=== PATIENT | male | born 1955 | race Two or more races ===

== ENCOUNTER 2017-11-03 11:28 | Inpatient (IN) | payer OTHER ==
[~2017-11-03] VITALS: Ht 177.8 cm; Wt 49.9 kg
[2017-11-03 11:30] VITALS: BP 124/82
--- NOTE | 2017-11-03 11:30 | NUR ---
[id number] FROM HOME: SEVERE SOB, HYPOXIA. PATIENT APPEARS IN DISTRESS. NOTED TACHY ON TELE MONITOR. AFEBRILE AT THUS TIME,. MD CHACON AND RT AT BEDSIDE
--- NOTE | 2017-11-03 11:32 | NUR ---
PATIENT WAS PLACED ON CPAP
[2017-11-03] MEDS ORDERED: Magnesium 1GM/D5W 100ML PREMIX 200 ML IV ONE ×2 (11:33→11:44)
[2017-11-03] MEDS ORDERED: methylPREDNISolone SOD SUCC 125 MG/2ML VIAL ONE (11:43)
--- NOTE | 2017-11-03 11:50 | NUR ---
RT AT BS
[2017-11-03 11:58] LABS: BASOPHILS # (AUTO) 0.2 /CMM (0.0-0.2); BASOPHILS % (AUTO) 1.4 % (0.0-2.0); HEMATOCRIT 45 % (39-51); HEMOGLOBIN 15.4 g/dL (13.5-17.5); LYMPHOCYTES % (AUTO) 7.2 % (20.0-44.0); MEAN CORPUSCULAR HEMOGLOBIN 33 PG (26.0-33.0); MEAN CORPUSCULAR HGB CONC 35 g/dl (31.0-36.0); MEAN CORPUSCULAR VOLUME 96 fL (80-96); MONOCYTES # (AUTO) 1.7 /CMM (0.1-1.30); MONOCYTES % (AUTO) 13.2 % (2.0-12.0); NEUTROPHILS # (AUTO) 10.3 /CMM (1.8-8.9); NEUTROPHILS % (AUTO) 78.2 % (43.0-81.0); PLATELET COUNT (AUTO) 544 /CMM (150-450); RDW COEFFICIENT OF VARIATION 12.1 (11.5-15.0); RED BLOOD CELL COUNT(AUTO) 4.69 MIL/uL (4.5-6.0); WHITE BLOOD COUNT (AUTO) 13.2 K/uL (4.3-11.0)
[2017-11-03] MEDS ORDERED: ALBUTEROL FS 2.5 MG/3 ML VIAL.NEB NEB ONE (12:00)
[2017-11-03] MEDS ORDERED: IPRATROPIUM NEB FS 0.5 MG/2.5 ML AMPUL.NEB NEB ONE (12:00)
[2017-11-03] MEDS ORDERED: methylPREDNISolone SOD SUCC 125 MG/2ML VIAL IV ONE (12:00)
--- NOTE | 2017-11-03 12:00 | NUR ---
RT PT CAME FOR SOB PLACED PT ON BIPAP ORDERED PER 15/03 16RR 100% 02
[2017-11-03 12:08] LABS: CARBON DIOXIDE 35 mmol/L (21-32); CHLORIDE 99 mmol/L (98-107); CREATININE 0.6 mg/dL (0.6-1.3); GLUCOSE 166 mg/dL (74-106); POTASSIUM 4.1 mmol/L (3.5-5.1); SODIUM SERUM 140 mmol/L (136-145); UREA NITROGEN, BLOOD 15 mg/dL (7-18)
[2017-11-03 12:11] LABS: INR 1.14 (0.87-1.13); PROTHROMBIN TIME 11.9 SECS (9.5-12.7)
[2017-11-03 12:16] LABS: TROPONIN I < 0.017 ng/mL (0.00-0.056)
[2017-11-03 12:21] LABS: ALANINE AMINOTRANSFERASE 37 U/L (12-78); ALKALINE PHOSPHATASE 83 U/L (46-116); ASPARTATE AMINOTRANSFERASE 25 U/L (15-37); B-TYPE NATRIURETIC PEPTIDE 2052 PG/ML (0-125); BILIRUBIN,DIRECT 0.2 mg/dL (0.0-0.2); BILIRUBIN,TOTAL 0.5 mg/dL (0.2-1.0); TOTAL PROTEIN, SERUM 8.6 g/dL (6.4-8.2)
[2017-11-03] MEDS ORDERED: ALBUTEROL FS 2.5 MG/3 ML VIAL.NEB ONE (12:26)
[2017-11-03 12:39] VITALS: BP 107/84
--- NOTE | 2017-11-03 13:00 | NUR ---
RT PT ON BIPAP TX GIVEN INLINE FELIX VENT SETTING ABG TAKEN INFORMED DR CHACON, TITRATED 02 50%
[2017-11-03 13:13] LABS: ABG BASE EXCESS 3.9 mmol/L; ABG OXYGEN SATURATION 99.2 % (92.0-98.5); ABG PCO2 62.6 mmHg (35.0-45.0); ABG PH 7.325 (7.350-7.450); AaDO2 43.7 mmHg; COHb 0.9 % (0.5-1.5); MetHb 0.6 % (0.0-1.5); O2Hb 97.7 % (94.0-97.0); SITE, ABG Left Brachial; VENT MODE, BG bipap100% 02 15/5
[2017-11-03] MEDS ORDERED: IV NS 0.9% 250 ML IV ONE (13:44)
[2017-11-03] MEDS ORDERED: CT SWABBABLE VALVE TRANS SET 1 EA INFUS.SET MC ONE (13:44)
[2017-11-03] MEDS ORDERED: IOHEXOL-350 100 ML VIAL IV ONE (13:44)
[2017-11-03] MEDS ORDERED: CEFTRIAXONE 1GM BAG (ER ONLY) 50 ML IV ONE (14:30)
[2017-11-03] MEDS ORDERED: AZITHROMYCIN 500 MG in IV D5W 250 ML IV ONE (14:30)
[2017-11-03 14:46] LABS: APPEARANCE,URINE Clear (CLEAR); BILIRUBIN,URINE Negative (NEGATIVE); BLOOD, URINE Moderate Ery/uL (NEGATIVE); COLOR,URINE Yellow (YELLOW); KETONES,URINE Negative (NEGATIVE); LEUKOCYTE ESTERASE ,URINE Negative (NEGATIVE); NITRITE, URINE Negative (NEGATIVE); PH,URINE 5.5 (5.0-8.0); PROTEIN,URINE >=300 mg/dl (NEGATIVE); UGLUCOSE Negative (NEGATIVE)
[2017-11-03 15:02] LABS: BACTERIA,URINE None seen /HPF (None Seen); RBC,URINE 0-3 /HPF (0-2); SQUAMOUS EPITHELIAL CELL,UR Few /HPF (None Seen)
[2017-11-03] MEDS ORDERED: ONDANSETRON HCL/PF 4 MG/2 ML VIAL IVP PRN (15:30)
[2017-11-03] MEDS ORDERED: ACETAMINOPHEN 650 MG/SUPP.RECT RC PRN (15:30)
[2017-11-03] MEDS ORDERED: IV NS 0.9% 1,000 ML BAG IV ONE (15:30)
[2017-11-03] MEDS ORDERED: VANCOMYCIN 1 GM in IV D5W 250 ML IV ONE ×4 (16:00)
[2017-11-03 16:45] LABS: ALBUMIN 2.5 g/dL (3.4-5.0); BILIRUBIN,DIRECT 0.2 mg/dL (0.0-0.2); BILIRUBIN,TOTAL 0.5 mg/dL (0.2-1.0); CREATININE 0.6 mg/dL (0.6-1.3); TOTAL PROTEIN, SERUM 7.3 g/dL (6.4-8.2)
--- NOTE | 2017-11-03 17:04 | NUR ---
CALLED [facility], DR. LOOMIS WAS PAGED
--- NOTE | 2017-11-03 17:05 | NUR ---
RECEIVED CALL FROM FIELD SALES EXECUTIVE. PATIENT WILL NOT BE ABLE TO GET TRANSFERED OUT TO [facility]. OKAY TO ADMIT PATIENT TO HOSPITALIST. TRACKING NUMBER RECEIVED FROM FIELD SALES EXECUTIVE: [id number]
[2017-11-03 17:28] LABS: ABG BASE EXCESS 6.3 mmol/L; ABG OXYGEN SATURATION 90.4 % (92.0-98.5); ABG PCO2 51.5 mmHg (35.0-45.0); ABG PH 7.414 (7.350-7.450); ABG PO2 60.3 mmHg (75.0-100.0); AaDO2 165.7 mmHg; COHb 0.6 % (0.5-1.5); MetHb 0.4 % (0.0-1.5); O2Hb 89.5 % (94.0-97.0); SITE, ABG Left Brachial
[2017-11-03] MEDS ORDERED: PIPERACILLIN /TAZOBACTAM 4.5 G in IV D5W 100 ML IV SCH (18:00)
--- NOTE | 2017-11-03 18:37 | NUR ---
REPORT GIVEN TO NAE JONES FOR RANDI
--- NOTE | 2017-11-03 18:50 | NUR ---
PATIENT TRANSPORTED TO TELE. S
[2017-11-03] MEDS ORDERED: FEE PK DOSING 1 MIN EA MC ONE (18:52)
[2017-11-03] MEDS ORDERED: MORPHINE SULFATE INJ 4 MG/ML DISP.SYRIN IV PRN (19:00)
--- NOTE | 2017-11-03 19:35 | NUR ---
LACQUER COATER ADMIN NOTES PT ARRIVED ON FLOOR AT 1850. PT IS A/O X3, ABLE TO MAKE NEEDS KNOWN. MAY BE A POOR HISTORIAN, NOTICED DISCREPANCIES BETWEEN PTS INTERVIEW AND MDS NOTES OF INTERVIEW WITH FAMILY. DENIES PAIN AT THIS TIME. POOR HYGIENE NOTED, PT STATES HE HAS NOT SHOWERED IN A COUPLE DAYS. SKIN IS INTACT, ONLY DRYNESS NOTED. PT STATES THAT HE HAS HAD POOR APPETITE LATELY AND HASN'T BEEN WANTING TO DRINK OR EAT MUCH. WHEN I ASKED IF HE HAD LOST WEIGHT HE STATED MAYBE JUST A COUPLE POUNDS, IN MDS REPORT FAMILY STATED HE HAD LOST A LOT OF WEIGHT. ON TELE MONITOR SHOWING ST 110. BED IS IN LOW AND LOCKED POSITION, CALL LIGHT WITHIN REACH. WILL CONTINUE TO MONITOR PT.
[2017-11-03 20:00] VITALS: BP 117/70
[2017-11-03] MEDS: PANTOPRAZOLE 40 MG VIAL IV SCH (22:09)
[2017-11-03] MEDS: ZOSYN IVPB 3.375 G in IV D5W 50ml IV SCH (22:09)
[2017-11-04] VITALS: BP 114/68
[2017-11-04] MEDS: ZOSYN IVPB 3.375 G in IV D5W 50ml IV SCH ×4 (01:52→20:23)
[2017-11-04] MEDS ORDERED: VANCOMYCIN 1 GM VIAL ONE ×2 (03:02→03:11)
[2017-11-04] MEDS: VANCOMYCIN 0.75 GM in IV D5W 250 ML IV SCH ×2 (03:28→18:06)
[2017-11-04 04:00] VITALS: BP 106/61
--- NOTE | 2017-11-04 06:38 | NUR ---
PIPE FITTER CLOSING NOTES PT IS IN BED AWAKE AND ALERT. NO SIGNS OF SOB OR DISTRESS. BREATHING EVENLY AND UNLABORED ON 2L NC. TELE MONITOR SHOWING SR 98. DENIES PAIN AT THIS TIME. ALL NEEDS WERE ANTICIPATED AND MET. BED IS IN LOW AND LOCKED POSITION, CALL LIGHT WITHIN REACH. WILL ENDORSE TO DAYSHIFT.
[2017-11-04 06:46] LABS: EOSINOPHILS % (AUTO) 0.1 % (0.0-6.0); HEMATOCRIT 37 % (39-51); HEMOGLOBIN 12.6 g/dL (13.5-17.5); LYMPHOCYTES # (AUTO) 0.7 /CMM (0.8-4.8); LYMPHOCYTES % (AUTO) 4.5 % (20.0-44.0); MEAN CORPUSCULAR HEMOGLOBIN 33 PG (26.0-33.0); MEAN CORPUSCULAR HGB CONC 34 g/dl (31.0-36.0); MEAN CORPUSCULAR VOLUME 96 fL (80-96); MONOCYTES # (AUTO) 1.8 /CMM (0.1-1.30); MONOCYTES % (AUTO) 10.8 % (2.0-12.0); NEUTROPHILS # (AUTO) 13.8 /CMM (1.8-8.9); NEUTROPHILS % (AUTO) 84.6 % (43.0-81.0); PLATELET COUNT (AUTO) 500 /CMM (150-450); RDW COEFFICIENT OF VARIATION 11.9 (11.5-15.0); RED BLOOD CELL COUNT(AUTO) 3.87 MIL/uL (4.5-6.0); WHITE BLOOD COUNT (AUTO) 16.3 K/uL (4.3-11.0)
--- NOTE | 2017-11-04 07:10 | NUR ---
RN NOTES: PATIENT RESTIN IN BED. NONLABORED BREATHING NOTED ON ROOM AIR. NO SIGNS OF DISTRESS NOTED. PATIENT AOX3. IV LINE PATENT AND INTACT ON LEFT HAND. BED IN LOWEST LOCKED POSITION.CALL LIGHT WITHIN REACH
--- NOTE | 2017-11-04 07:10 | NUR ---
RN NOTES: PATIENT RESTIN IN BED. NONLABORED BREATHING NOTED ON ROOM AIR. NO SIGNS OF DISTRESS NOTED. PATIENT AOX3. IV LINE PATENT AND INTACT ON LEFT HAND. PATIENT ON TELE WITH SINUS RHYTHM. BED IN LOWEST LOCKED POSITION.CALL LIGHT WITHIN REACH
[2017-11-04 07:21] LABS: ALBUMIN 2.3 g/dL (3.4-5.0); BILIRUBIN,TOTAL 0.3 mg/dL (0.2-1.0); CREATININE 0.7 mg/dL (0.6-1.3); POTASSIUM 3.9 mmol/L (3.5-5.1)
[2017-11-04 08:00] VITALS: BP 98/61
[2017-11-04] MEDS: IV NS 0.9% 1,000 ML IV PRN ×2 (09:06→20:21)
[2017-11-04] MEDS: PANTOPRAZOLE 40 MG VIAL IV SCH (09:11)
[2017-11-04 12:00] VITALS: BP 98/59
[2017-11-04] MEDS: methylPREDNISolone SOD SUCC 125 MG/2ML VIAL IV SCH ×2 (15:34→20:22)
[2017-11-04 15:59] VITALS: BP 115/68
[2017-11-04] MEDS: IPRATROPIUM NEB FS 0.5 MG/2.5 ML AMPUL.NEB NEB SCH ×2 (16:38→20:09)
[2017-11-04] MEDS: ALBUTEROL HALF STRENGTH 1.25 MG/3 ML VIAL.NEB NEB SCH ×2 (16:38→20:09)
--- NOTE | 2017-11-04 19:10 | NUR ---
RN NOTES: PATIENT RESTIN IN BED. NONLABORED BREATHING NOTED ON2 L NASAL CANNULA. NO SIGNS OF DISTRESS NOTED. PATIENT AOX3. IV LINE PATENT AND INTACT ON LEFT HAND. BED IN LOWEST LOCKED POSITION.CALL LIGHT WITHIN REACH. PATIENT AFEBRILE DURING SHIFT, EDUCATED ON USAGE ON INCENTIVE SPIROMETER, VERBALIZED UNDERSTANDING. PATIENT NOTED WITH NONPRODUCTIVE COUGHING. ANTIBIOTICS ADMINISTERED LATE DUE TO LATE ARRIVAL FROM PHARMACY, SPOKE TO JAVIER. BED IN LOWEST LOCKED POSITION. CALL LIGHT WITHIN REACH. ENDORSED TO NEXT SHIFT
--- NOTE | 2017-11-04 19:35 | NUR ---
MS RN INITIAL NOTES PT IS IN BED AWAKE AND ALERT, ABLE TO MAKE NEEDS KNOWN. BREATHING EVENLY AND UNLABORED ON 2L NC. NO SIGNS OF SOB OR DISTRESS. INCENTIVE SPIROMETER AT BEDSIDE, REEDUCATED PT ON THE IMPORTANCE OF IT, PT VERBALIZED UNDERSTANDING. IV ACCESS IS LEAKING/ NO LONGER PATENT. NEW LINE TO BE INSERTED. PLACED SPECIMEN CUP NEAR PT BED FOR SPUTUM COLLECTION. BED IS IN LOW AND LOCKED POSITION, CALL LIGHT WITHIN REACH. WILL CONTINUE TO MONITOR PT
[2017-11-04 20:00] VITALS: BP 120/66
[2017-11-04] MEDS ORDERED: AZITHROMYCIN 500 MG VIAL ONE (22:54)
[2017-11-04] MEDS: AZITHROMYCIN 500 MG in IV D5W 250 ML IV SCH (23:05)
[2017-11-05] MEDS: IPRATROPIUM NEB FS 0.5 MG/2.5 ML AMPUL.NEB NEB SCH ×6 (00:01→20:23)
[2017-11-05] MEDS: ALBUTEROL HALF STRENGTH 1.25 MG/3 ML VIAL.NEB NEB SCH ×6 (00:01→20:23)
[2017-11-05] MEDS: ZOSYN IVPB 3.375 G in IV D5W 50ml IV SCH ×4 (01:07→20:28)
[2017-11-05] MEDS: VANCOMYCIN 0.75 GM in IV D5W 250 ML IV SCH (04:00)
[2017-11-05] MEDS: methylPREDNISolone SOD SUCC 125 MG/2ML VIAL IV SCH ×3 (04:00→20:56)
[2017-11-05] MEDS: IV NS 0.9% 1,000 ML IV PRN (04:06)
--- NOTE | 2017-11-05 06:11 | NUR ---
MS RN CLOSING NOTES PT IS IN BED SLEEPING, EASILY AROUSED. NO SIGNS OF SOB OR DISTRESS. BREATHING EVENLY AND UNLABORED ON 2L NC.DENIES PAIN AT THIS TIME. UNABLE TO COLLECT SPUTUM. ALL NEEDS WERE ANTICIPATED AND MET. BED IS IN LOW AND LOCKED POSITION, CALL LIGHT WITHIN REACH. WILL ENDORSE TO DAYSHIFT.
--- NOTE | 2017-11-05 07:15 | NUR ---
RN OPENING NOTES RECEIVED PATIENT RESTING IN BED, A/OX3. NO ACUTE DISTRESS, NO SOB NOTED. DENIES PAIN OR DISCOMFORT. ON 2LPM O2 VIA NC, SPO2 96%. IV SITE INTACT AND PATIENT, IVF RUNNING AT 125ML/HR. KEPT PATIENT SAFE AND COMFORTABLE. BED IN LOW, LOCKED POSITION, SEMIFOWLERS, SIDERAILS UPX2, CALL LIGHT IN REACH. WILL CONTINUE TO MONITOR ACCORDINGLY.
[2017-11-05 08:00] VITALS: BP 128/56
[2017-11-05] MEDS: PANTOPRAZOLE 40 MG VIAL IV SCH (08:58)
[2017-11-05 09:08] LABS: CALCIUM, SERUM 8.6 mg/dL (8.5-10.1); CREATININE 0.6 mg/dL (0.6-1.3); POTASSIUM 3.6 mmol/L (3.5-5.1)
[2017-11-05 11:34] LABS: BASOPHILS # (AUTO) 0.2 /CMM (0.0-0.2); BASOPHILS % (AUTO) 1.7 % (0.0-2.0); HEMATOCRIT 32 % (39-51); HEMOGLOBIN 11.3 g/dL (13.5-17.5); LYMPHOCYTES # (AUTO) 0.9 /CMM (0.8-4.8); LYMPHOCYTES % (AUTO) 7.4 % (20.0-44.0); MEAN CORPUSCULAR HEMOGLOBIN 33 PG (26.0-33.0); MEAN CORPUSCULAR HGB CONC 35 g/dl (31.0-36.0); MEAN CORPUSCULAR VOLUME 95 fL (80-96); MONOCYTES # (AUTO) 0.8 /CMM (0.1-1.30); NEUTROPHILS # (AUTO) 10.2 /CMM (1.8-8.9); NEUTROPHILS % (AUTO) 83.9 % (43.0-81.0); PLATELET COUNT (AUTO) 404 /CMM (150-450); RDW COEFFICIENT OF VARIATION 11.7 (11.5-15.0); RED BLOOD CELL COUNT(AUTO) 3.38 MIL/uL (4.5-6.0); WHITE BLOOD COUNT (AUTO) 12.1 K/uL (4.3-11.0)
[2017-11-05 12:12] LABS: CALCIUM, SERUM 8.5 mg/dL (8.5-10.1); CREATININE 0.5 mg/dL (0.6-1.3); POTASSIUM 3.4 mmol/L (3.5-5.1)
[2017-11-05 16:00] VITALS: BP 110/61
[2017-11-05] MEDS ORDERED: POTASSIUM CHLORIDE 20 MEQ POWDER PACKET NG SCH ×2 (16:00→18:30)
[2017-11-05] MEDS: BOOST PLUS FOOD-VANILLA 237 ML BOX PO SCH (17:00)
[2017-11-05] MEDS: VANCOMYCIN 1 GM in IV D5W 250 ML IV SCH (17:40)
--- NOTE | 2017-11-05 19:35 | NUR ---
RN CLOSING NOTES NO SIGNIFICANT CHANGE IN PATIENT'S CONDITION. NO ACUTE DISTRESS, NO SOB NOTED. DENIES PAIN OR DISCOMFORT. ALL NEEDS ATTENDED AND PROVIDED. BED IN LOW, LOCKED POSITION, SIDERAILS UPX2, CALL LIGHT IN REACH. ENDORSED TO NIGHT RN FOR RANDI.
[2017-11-05 20:00] VITALS: BP 130/58
--- NOTE | 2017-11-05 20:00 | NUR ---
RN NOTES PATIENT IN BED, ALERT AND ORIENTED X3, CALM, NO SOB, NO DISTRESS, TOLERATING 2LPM, ABLE TO VERBALIZE NEEDS, DENIES ANY PAIN AT THIS TIME, LEFT FA PERIPHERAL LINE IS PATENT AND INFUSING WELL. NEEDS ATTENDED, CALL LIGHT WITHIN REACH.
[2017-11-05] MEDS: AZITHROMYCIN 500 MG in IV D5W 250 ML IV SCH (22:40)
[2017-11-06] MEDS: IPRATROPIUM NEB FS 0.5 MG/2.5 ML AMPUL.NEB NEB SCH ×7 (00:07→23:39)
[2017-11-06] MEDS: ALBUTEROL HALF STRENGTH 1.25 MG/3 ML VIAL.NEB NEB SCH ×7 (00:07→23:39)
[2017-11-06] MEDS: IV NS 0.9% 1,000 ML IV PRN ×2 (01:00→20:41)
[2017-11-06] MEDS: ZOSYN IVPB 3.375 G in IV D5W 50ml IV SCH ×4 (01:35→20:36)
[2017-11-06] MEDS: VANCOMYCIN 1 GM in IV D5W 250 ML IV SCH ×2 (05:13→19:00)
[2017-11-06] MEDS: methylPREDNISolone SOD SUCC 125 MG/2ML VIAL IV SCH ×3 (05:13→20:36)
[2017-11-06 08:00] VITALS: BP 131/56
--- NOTE | 2017-11-06 08:10 | NUR ---
MS RN RECEIVED ON BED, AWAKE,ALERT,ORIENTED X3,NOT IN ANY FORM OF DISTRESS, RESPIRATIONS EVEN AND UNLABORED,NO SOB NOTED, WILL MONITOR PATIENT.
[2017-11-06 08:15] LABS: CALCIUM, SERUM 8.6 mg/dL (8.5-10.1); CREATININE 0.5 mg/dL (0.6-1.3); POTASSIUM 3.4 mmol/L (3.5-5.1)
--- NOTE | 2017-11-06 09:00 | NUR ---
MS SOIN BREAKFAST SERVED,DUE MEDS GIVEN,TOLERATED WELL.
[2017-11-06] MEDS: PANTOPRAZOLE 40 MG VIAL IV SCH (09:45)
[2017-11-06] MEDS: BOOST PLUS FOOD-VANILLA 237 ML BOX PO SCH ×2 (09:45→17:00)
--- NOTE | 2017-11-06 10:30 | NUR ---
MS RN WAS SEEN BY DR. LOOMIS ,NO ORDER AT THIS TIE.
[2017-11-06] MEDS ORDERED: POTASSIUM CHLORIDE 20 MEQ TAB.PRT.SR PO ONE ×2 (11:00→18:00)
[2017-11-06 16:00] VITALS: BP 127/58
--- NOTE | 2017-11-06 18:00 | NUR ---
MS RN ON BED, NO DISTRESS NOTED, ALL NEEDS ATTENDED.
--- NOTE | 2017-11-06 18:17 | NUR ---
MS RN ON BED, NO CHANGE OF CONDITION.
[2017-11-06] MEDS: LACTOBACILLUS RHAMNOSUS GG 1 EACH CAP.SPRINK PO SCH (19:00)
--- NOTE | 2017-11-06 19:30 | NUR ---
MS RN OPENING NOTES: RECEIVED PT AWAKE AND SITTING UP IN BED WATCHING TELEVISION. PT A/OX3. PT ON 2LPM VIA NC AND IS TOLERATING WELL. CALL LIGHT WITHIN PT'S REACH. BED KEPT IN LOW, LOCKED POSITION AND SIDE RAILS X 2UP. PT HAS LEFT FOREARM #22G BEING INFUSED WITH VANCO. WILL CONTINUE TO MONITOR PT.
[2017-11-06 20:00] VITALS: BP 158/72
[2017-11-06 20:16] VITALS: BP_SYST 103; BP_SYST 158; BP_DIAS 42; BP_DIAS 72
[2017-11-06] MEDS: AZITHROMYCIN 250 MG TABLET PO SCH (21:50)
[2017-11-07] MEDS: ZOSYN IVPB 3.375 G in IV D5W 50ml IV SCH ×4 (02:03→19:51)
[2017-11-07] MEDS: ALBUTEROL HALF STRENGTH 1.25 MG/3 ML VIAL.NEB NEB SCH ×6 (04:01→23:30)
[2017-11-07] MEDS: IPRATROPIUM NEB FS 0.5 MG/2.5 ML AMPUL.NEB NEB SCH ×6 (04:01→23:30)
[2017-11-07 04:14] LABS: HEMATOCRIT 35 % (39-51); HEMOGLOBIN 11.8 g/dL (13.5-17.5); LYMPHOCYTES # (AUTO) 1.8 /CMM (0.8-4.8); LYMPHOCYTES % (AUTO) 11.4 % (20.0-44.0); MEAN CORPUSCULAR HEMOGLOBIN 33 PG (26.0-33.0); MEAN CORPUSCULAR HGB CONC 34 g/dl (31.0-36.0); MEAN CORPUSCULAR VOLUME 98 fL (80-96); MONOCYTES # (AUTO) 0.6 /CMM (0.1-1.30); NEUTROPHILS % (AUTO) 84.6 % (43.0-81.0); PLATELET COUNT (AUTO) 542 /CMM (150-450); RDW COEFFICIENT OF VARIATION 12.5 (11.5-15.0); RED BLOOD CELL COUNT(AUTO) 3.56 MIL/uL (4.5-6.0); WHITE BLOOD COUNT (AUTO) 15.4 K/uL (4.3-11.0)
[2017-11-07 04:24] LABS: CALCIUM, SERUM 8.8 mg/dL (8.5-10.1); CREATININE 0.7 mg/dL (0.6-1.3); POTASSIUM 3.4 mmol/L (3.5-5.1)
[2017-11-07] MEDS: VANCOMYCIN 1 GM in IV D5W 250 ML IV SCH ×2 (04:40→17:19)
[2017-11-07] MEDS: methylPREDNISolone SOD SUCC 125 MG/2ML VIAL IV SCH ×3 (04:40→21:05)
[2017-11-07] MEDS: IV NS 0.9% 1,000 ML IV PRN ×2 (06:24→17:19)
--- NOTE | 2017-11-07 07:15 | NUR ---
MS RN CLOSING NOTES: ALL NEEDS WERE ATTENDED AND ANTICIPATED FOR. PT IS SITTING UP IN BED. URINAL OUTPUT WAS 940ML. PT A/OX3. PT ON 2LPM VIA NC AND IS TOLERATING WELL. CALL LIGHT WITHIN PT'S REACH. BED KEPT IN LOW, LOCKED POSITION AND SIDE RAILS X 2UP. PT HAS LEFT FOREARM #22G BEING INFUSED WITH NS AT 125ML/HR. ENDORSED TO AM NURSE FOR RANDI.
--- NOTE | 2017-11-07 07:46 | NUR ---
MS/RN OPENING NOTE PATIENT IN BED IN STABLE CONDITION. A/O X 3. NO SIGNS OF ACUTE DISTRESS. NO COMPLAIN OF PAIN OR DISCOMFORT. ALL NEEDS ATTENDED TO. CALL LIGHT WITHIN REACH. WILL CONTINUE TO MONITOR TO ENSURE SAFETY.
[2017-11-07] MEDS: PANTOPRAZOLE 40 MG VIAL IV SCH (08:53)
[2017-11-07] MEDS: LACTOBACILLUS RHAMNOSUS GG 1 EACH CAP.SPRINK PO SCH ×2 (08:53→17:20)
[2017-11-07] MEDS ORDERED: POTASSIUM CHLORIDE 20 MEQ TAB.PRT.SR PO ONE (10:00)
[2017-11-07] MEDS: BOOST PLUS FOOD-VANILLA 237 ML BOX PO SCH ×2 (12:45→17:31)
[2017-11-07 16:00] VITALS: BP 154/80
--- NOTE | 2017-11-07 19:02 | NUR ---
MS/RN CLOSING NOTE PATIENT IN BED IN STABLE CONDITION. A/O X 3. NO SIGNS OF ACUTE DISTRESS. NO COMPLAIN OF PAIN OR DISCOMFORT. ALL NEEDS ATTENDED TO. CALL LIGHT WITHIN REACH. WILL ENDORSE TO NEXT SHIFT FOR CONTINUITY OF CARE.
--- NOTE | 2017-11-07 19:20 | NUR ---
MS RN OPENING NOTES: RECEIVED PT AWAKE AND SITTING UP IN BED. PT A/OX3. PT ON 2LPM VIA NC AND IS TOLERATING WELL. CALL LIGHT WITHIN PT'S REACH. BED KEPT IN LOW, LOCKED POSITION AND SIDE RAILS X 2UP. PT HAS LEFT FOREARM #22G BEING INFUSED WITH NS AT 125ML/HR. WILL CONTINUE TO MONITOR PT.
[2017-11-07] MEDS: AZITHROMYCIN 250 MG TABLET PO SCH (21:05)
[2017-11-07 21:51] VITALS: BP 127/69
[2017-11-07] MEDS ORDERED: TAMSULOSIN 0.4 MG CAP.SR.24H PO SCH (22:00)
[2017-11-08] MEDS: ZOSYN IVPB 3.375 G in IV D5W 50ml IV SCH ×2 (01:17→08:30)
[2017-11-08] MEDS: IPRATROPIUM NEB FS 0.5 MG/2.5 ML AMPUL.NEB NEB SCH ×3 (03:48→12:26)
[2017-11-08] MEDS: ALBUTEROL HALF STRENGTH 1.25 MG/3 ML VIAL.NEB NEB SCH ×3 (03:48→12:26)
[2017-11-08] MEDS: IV NS 0.9% 1,000 ML IV PRN (04:08)
[2017-11-08] MEDS: methylPREDNISolone SOD SUCC 125 MG/2ML VIAL IV SCH (04:23)
[2017-11-08] MEDS: VANCOMYCIN 1 GM in IV D5W 250 ML IV SCH (05:14)
--- NOTE | 2017-11-08 07:30 | NUR ---
MS RN CLOSING NOTES: ALL NEEDS WERE ATTENDED AND ANTICIPATED FOR. PT ASLEEP IN BED IN SEMI RODRIGUEZ'S POSITION. PT ON 2LPM VIA NC AND IS TOLERATING WELL. CALL LIGHT WITHIN PT'S REACH. BED KEPT IN LOW, LOCKED POSITION AND SIDE RAILS X 2UP. PT HAS LEFT FOREARM #22G BEING INFUSED WITH NS AT 125ML/HR. ENDORSED TO AM NURSE FOR RANDI.
--- NOTE | 2017-11-08 07:50 | NUR ---
RN OPENING NOTES RECEIVED PATIENT RESTING COMFORTABLY IN BED. AOX3. DENIES ANY PAIN, SOB OR CP. RESPIRATION EVEN AND UNLABORED. NO ACUTE DISTRESS. IV ACCESS PATENT AND INTACT ON THE LFA WITH NS RUNNING AT 125ML/HR. BED LOCKED IN THE LOWEST POSITION WITH SIDE RAIL UP X2. CALL LIGHT WITHIN REACH. WILL CONTINUE TO MONITOR, ASSESS AND EDUCATE PATIENT THROUGHOUT SHIFT.
[2017-11-08 08:00] VITALS: BP 119/75
[2017-11-08 08:07] LABS: CALCIUM, SERUM 8.3 mg/dL (8.5-10.1); CREATININE 0.6 mg/dL (0.6-1.3); POTASSIUM 3.1 mmol/L (3.5-5.1)
[2017-11-08] MEDS: PANTOPRAZOLE 40 MG VIAL IV SCH (08:31)
[2017-11-08] MEDS: LACTOBACILLUS RHAMNOSUS GG 1 EACH CAP.SPRINK PO SCH (08:31)
[2017-11-08] MEDS: BOOST PLUS FOOD-VANILLA 237 ML BOX PO SCH (09:07)
[2017-11-08] MEDS ORDERED: POTASSIUM CHLORIDE 20 MEQ TAB.PRT.SR PO ONE (10:30)
[2017-11-08 13:20] VITALS: BP 107/71
--- NOTE | 2017-11-08 13:39 | NUR ---
SHOW CARD WRITER NOTES PATIENT DISCHARGED IN STABLE CONDITION TO [facility]. AOX3. ALL DISCHARGE INSTRUCTIONS UNDERSTOOD. CALLED TO GIVE REPORT. FACILITY UN ABLE TO AT THIS TIME. WILL WAIT FOR CALL. ALL BELONGINGS ACCOUNTED FOR. RESPIRATIONS EVEN AND UNLABORED. NO ACUTE DISTRESS. DENIES ANY PAIN, CP OR SOB. IV REMOVED. IN THE EVENT OF AN EMERGENCY PATIENT TO BE RETURN TO ER. FOLLOW UP PCP 1-2 WEEKS. WILL ENDORSE TO [facility] FOR RANDI.
[2017-11-08] MEDS ORDERED: LACTOBACILLUS RHAMNOSUS GG 1 EACH CAP.SPRINK PO SCH (17:00)
== END 2017-11-08 13:18 | DRG 720 ==
LOC: ER 11:29 → TELE 18:18 → MED 11-04 16:09
PROVIDERS: ADMIT Internal Medicine; ATTEND Internal Medicine
DX: A41.9 Sepsis, unspecified organism (principal); E43 Unspecified severe protein-calorie malnutrition; J96.01 Acute respiratory failure with hypoxia; I11.0 Hypertensive heart disease with heart failure; J96.02 Acute respiratory failure with hypercapnia; G93.1 Anoxic brain damage, not elsewhere classified; R64 Cachexia; E87.2 Acidosis; I50.32 Chronic diastolic (congestive) heart failure; J15.9 Unspecified bacterial pneumonia; J44.0 Chronic obstructive pulmonary disease with (acute) lower respiratory infection; J44.1 Chronic obstructive pulmonary disease with (acute) exacerbation; E86.0 Dehydration; F17.200 Nicotine dependence, unspecified, uncomplicated; E87.6 Hypokalemia; Z82.3 Family history of stroke; Z82.0 Family history of epilepsy and other diseases of the nervous system; Z81.8 Family history of other mental and behavioral disorders; Z68.1 Body mass index [BMI] 19.9 or less, adult; N40.0 Benign prostatic hyperplasia without lower urinary tract symptoms; R53.81 Other malaise; T38.0X5A Adverse effect of glucocorticoids and synthetic analogues, initial encounter; Y92.129 Unspecified place in nursing home as the place of occurrence of the external cause
CPT/HCPCS: 36415; 36600; 71045-TC; 80048-TC; 80053-TC; 80076-TC; 80202-TC; 81000-TC; 82803-TC; 83605-TC; 83880; 84484-TC; 85025-TC; 85730-TC; 87040-TC; 87081-TC; 87086-TC; 87400; 94660; 94799-TC; 97116-TC; 97530-TC; A4606; C9113; J0456; J0696; J2543; J2930; J3370; J3475; J7030; J7050; J7060; Q9967; Z7610

== ENCOUNTER 2024-11-21 18:33 | Inpatient (IN) | payer MEDICARE, OTHER ==
[~2024-11-21] VITALS: Ht 177.8 cm; Wt 47.6 kg
[2024-11-21] MEDS ORDERED: PIPERACI/TAZO 3.375GM/D5W 50ML PB IV ONE (19:43)
[2024-11-21] MEDS ORDERED: methylPREDNISolone SOD SUCC 125 MG/2ML VIAL ONE (19:43)
[2024-11-21] MEDS ORDERED: IPRATROPIUM NEB FS 0.5 MG/2.5 ML AMPUL.NEB ONE (19:45)
[2024-11-21] MEDS ORDERED: ALBUTEROL FS 2.5 MG/3 ML VIAL.NEB ONE (19:45)
[2024-11-21] MEDS: methylPREDNISolone SOD SUCC 125 MG/2ML VIAL IV ONE (19:48)
[2024-11-21] MEDS: IV NS 0.9% 1,000 ML BAG IV ONE (19:48)
[2024-11-21 19:53] LABS: BASOPHILS # (AUTO) 0.1 K/uL (0.0-0.2); BASOPHILS % (AUTO) 0.3 % (0.0-2.0); HEMATOCRIT 42 % (39-51); HEMOGLOBIN 14.3 g/dL (13.5-17.5); LYMPHOCYTES # (AUTO) 1.6 K/uL (0.8-4.8); LYMPHOCYTES % (AUTO) 7.1 % (20.0-44.0); MEAN CORPUSCULAR HEMOGLOBIN 32 PG (26.0-33.0); MEAN CORPUSCULAR HGB CONC 34 g/dl (31.0-36.0); MEAN CORPUSCULAR VOLUME 96 fL (80-96); MONOCYTES # (AUTO) 1.7 K/uL (0.1-1.30); MONOCYTES % (AUTO) 7.5 % (2.0-12.0); NEUTROPHILS # (AUTO) 18.9 K/uL (1.8-8.9); NEUTROPHILS % (AUTO) 85.1 % (43.0-81.0); PLATELET COUNT (AUTO) 619 K/uL (150-450); RED BLOOD CELL COUNT(AUTO) 4.42 MIL/uL (4.5-6.0); RED CELL DISTRIBUTION WIDTH 12.7 % (11.5-15.0); WHITE BLOOD COUNT (AUTO) 22.2 K/uL (4.3-11.0)
[2024-11-21] MEDS: PIPERACILLIN /TAZOBACTAM 3.375 G in IV D5W 50 ML IV ONE (19:53)
[2024-11-21 20:00] VITALS: O2SAT 94
[2024-11-21] MEDS: ALBUTEROL FS 2.5 MG/3 ML VIAL.NEB CONTNEB ONE (20:04)
[2024-11-21] MEDS: IPRATROPIUM NEB FS 0.5 MG/2.5 ML AMPUL.NEB NEB ONE (20:04)
[2024-11-21 20:15] VITALS: O2SAT 99
[2024-11-21 20:16] VITALS: O2SAT 97
[2024-11-21 20:28] LABS: INR 1.19 (0.91-1.10); PARTIAL THROMBOPLASTIN TIME 30.2 SEC (24.3-34.3); PROTHROMBIN TIME 12.5 SECS (9.2-11.1)
[2024-11-21 20:32] VITALS: O2SAT 99
[2024-11-21 20:38] LABS: ALANINE AMINOTRANSFERASE 30 U/L (12-78); ALBUMIN 3.5 g/dL (3.4-5.0); ALKALINE PHOSPHATASE 76 U/L (46-116); ASPARTATE AMINOTRANSFERASE 11 U/L (15-37); BILIRUBIN,DIRECT 0.3 mg/dL (0.0-0.2); BILIRUBIN,TOTAL 0.9 mg/dL (0.2-1.0); CALCIUM, SERUM 9.1 mg/dL (8.5-10.1); CARBON DIOXIDE 30 mmol/L (21-32); CHLORIDE 103 mmol/L (98-107); CREATININE 0.9 mg/dL (0.6-1.3); GLUCOSE 143 mg/dL (74-106); POTASSIUM 4.6 mmol/L (3.5-5.1); SODIUM SERUM 141 mmol/L (136-145); TOTAL PROTEIN, SERUM 8.5 g/dL (6.4-8.2); UREA NITROGEN, BLOOD 13 mg/dL (7-18)
[2024-11-21 20:44] LABS: LACTIC ACID 3.4 mmol/L (0.4-2.0)
[2024-11-21] MEDS ORDERED: MAG HYDROX/AL HYDROX/SIMETH 30 ML UDC PO PRN (21:30)
[2024-11-21] MEDS ORDERED: Z GUARD REMEDY 4 OZ OINT TP PRN (21:30)
[2024-11-21] MEDS ORDERED: IPRATROPIUM NEB FS 0.5 MG/2.5 ML AMPUL.NEB NEB PRN (21:30)
[2024-11-21] MEDS ORDERED: ALBUTEROL FS 2.5 MG/0.5 ML VIAL.NEB NEB PRN (21:30)
[2024-11-21] MEDS ORDERED: ONDANSETRON HCL/PF 4 MG/2 ML VIAL IVP PRN (21:30)
[2024-11-21] MEDS ORDERED: MAGNESIUM HYDROXIDE 30 ML UDC PO PRN (21:30)
[2024-11-21] MEDS ORDERED: ACETAMINOPHEN 325 MG TABLET PO PRN (21:30)
[2024-11-21] MEDS ORDERED: ZOLPIDEM TARTRATE 5 MG TABLET PO PRN (21:30)
[2024-11-21 22:18] LABS: APPEARANCE,URINE CLEAR (CLEAR); BILIRUBIN,URINE 2+ (NEGATIVE); BLOOD, URINE NEGATIVE Ery/uL (NEGATIVE); COLOR,URINE YELLOW (YELLOW); KETONES,URINE 1+ mg/dL (NEGATIVE); LEUKOCYTE ESTERASE ,URINE NEGATIVE (NEGATIVE); NITRITE, URINE POSITIVE (NEGATIVE); PROTEIN,URINE 3+ mg/dl (NEGATIVE); UGLUCOSE NEGATIVE (NEGATIVE)
[2024-11-21 22:29] LABS: MUCUS,URINE Many /LPF (None Seen)
[2024-11-21 22:30] LABS: ADD URINE CULTURE YES; BACTERIA,URINE Few /HPF (None Seen); RBC,URINE 0-2 /HPF (0-2); SQUAMOUS EPITHELIAL CELL,UR None Seen /HPF (None Seen); WBC,URINE 0-2 /HPF (0-3)
[2024-11-22] MEDS: methylPREDNISolone SOD SUCC 40 MG/ML VIAL IV SCH (04:34)
[2024-11-22] MEDS: PIPERACILLIN /TAZOBACTAM 3.375 G in IV D5W 50 ML IV ONE (05:00)
[2024-11-22 06:12] LABS: BASOPHILS % (AUTO) 0.1 % (0.0-2.0); HEMATOCRIT 33 % (39-51); HEMOGLOBIN 11.4 g/dL (13.5-17.5); LYMPHOCYTES # (AUTO) 0.9 K/uL (0.8-4.8); LYMPHOCYTES % (AUTO) 6.1 % (20.0-44.0); MEAN CORPUSCULAR HEMOGLOBIN 33 PG (26.0-33.0); MEAN CORPUSCULAR HGB CONC 34 g/dl (31.0-36.0); MEAN CORPUSCULAR VOLUME 96 fL (80-96); MONOCYTES # (AUTO) 0.4 K/uL (0.1-1.30); MONOCYTES % (AUTO) 2.4 % (2.0-12.0); NEUTROPHILS # (AUTO) 13.6 K/uL (1.8-8.9); NEUTROPHILS % (AUTO) 91.4 % (43.0-81.0); PLATELET COUNT (AUTO) 434 K/uL (150-450); RED CELL DISTRIBUTION WIDTH 12.6 % (11.5-15.0); WHITE BLOOD COUNT (AUTO) 14.9 K/uL (4.3-11.0)
[2024-11-22] MEDS: PIPERACI/TAZO 3.375GM/D5W 50ML PB IV ONE (06:24)
[2024-11-22 06:31] LABS: CALCIUM, SERUM 8.4 mg/dL (8.5-10.1); CREATININE 0.8 mg/dL (0.6-1.3); MAGNESIUM 2.3 mg/dL (1.8-2.4); PHOSPHORUS 1.7 mg/dL (2.5-4.9); POTASSIUM 3.9 mmol/L (3.5-5.1)
[2024-11-22] MEDS ORDERED: PIPERACILLIN /TAZOBACTAM 3.375 G in IV D5W 50 ML IV SCH (08:00)
[2024-11-22] MEDS: PANTOPRAZOLE 40 MG VIAL IV SCH (09:38)
[2024-11-22] MEDS: ENOXAPARIN SODIUM 40 MG/0.4 ML DISP.SYRIN SQ SCH (09:45)
[2024-11-22] MEDS ORDERED: BACL10TA PO (09:49)
[2024-11-22] MEDS ORDERED: ROSU10TA29 PO (09:49)
[2024-11-22] MEDS ORDERED: ACET1TAB23 PO (09:49)
[2024-11-22] MEDS ORDERED: MULT-447 PO (09:49)
[2024-11-22] MEDS ORDERED: TAMS-12 PO (09:49)
[2024-11-22] MEDS: PIPERACILLIN /TAZOBACTAM 3.375 G in IV D5W 50 ML IV SCH (12:13)
[2024-11-22] MEDS: LEVOFLOXACIN (250MG) 250 MG TABLET PO SCH (12:29)
[2024-11-22] MEDS: ALBUTEROL FS 2.5 MG/0.5 ML VIAL.NEB NEB SCH (13:30)
[2024-11-22] MEDS: IPRATROPIUM NEB FS 0.5 MG/2.5 ML AMPUL.NEB NEB SCH (13:30)
[2024-11-22] MEDS: K PHOS NEUTRAL 250 MG TABLET PO ONE (16:00)
[2024-11-22 20:00] VITALS: BP 120/74; TEMP 98.6; O2SAT 94
[2024-11-22 20:05] VITALS: O2SAT 97
[2024-11-22 20:20] VITALS: O2SAT 99
[2024-11-23] VITALS (15 sets, daily range): BP systolic 111–132; BP diastolic 52–63; TEMP 97.9–98.3; O2SAT 91–100
[2024-11-23 07:49] LABS: CALCIUM, SERUM 8.8 mg/dL (8.5-10.1); CREATININE 0.7 mg/dL (0.6-1.3); POTASSIUM 3.5 mmol/L (3.5-5.1)
[2024-11-23] MEDS ORDERED: DEXTROSE 50%-WATER 50 ML DISP.SYRIN IV PRN (13:30)
[2024-11-23 15:00] LABS: HEMATOCRIT 31 % (39-51); HEMOGLOBIN 10.7 g/dL (13.5-17.5); LYMPHOCYTES % (AUTO) 7.2 % (20.0-44.0); MEAN CORPUSCULAR HEMOGLOBIN 33 PG (26.0-33.0); MEAN CORPUSCULAR HGB CONC 35 g/dl (31.0-36.0); MEAN CORPUSCULAR VOLUME 96 fL (80-96); MONOCYTES # (AUTO) 0.5 K/uL (0.1-1.30); MONOCYTES % (AUTO) 3.5 % (2.0-12.0); NEUTROPHILS # (AUTO) 12.6 K/uL (1.8-8.9); NEUTROPHILS % (AUTO) 89.3 % (43.0-81.0); PLATELET COUNT (AUTO) 465 K/uL (150-450); RED BLOOD CELL COUNT(AUTO) 3.25 MIL/uL (4.5-6.0); RED CELL DISTRIBUTION WIDTH 12.7 % (11.5-15.0); WHITE BLOOD COUNT (AUTO) 14.1 K/uL (4.3-11.0)
[2024-11-23] MEDS: BLOOD SUGAR DIAGNOSTIC 1 EACH STRIP IN SCH (17:34)
[2024-11-23] MEDS: INSULIN REGULAR, HUMAN 100 UNIT/ML 3 ML VIAL SQ PRN (17:39)
[2024-11-23 19:37] LABS: HIV-1 p24 ANTIGEN NON REACTIVE (NONREACTIVE); HIV-1/2 ANTIBODY NON REACTIVE (NONREACTIVE)
[2024-11-23] MEDS ORDERED: LIDOCAINE 5% OINT 35.44 GM TUBE TP PRN (20:00)
[2024-11-24] VITALS (14 sets, daily range): BP systolic 123–145; BP diastolic 53–68; TEMP 98.2–98.6; O2SAT 63–99
[2024-11-24 07:35] LABS: ALBUMIN 2.3 g/dL (3.4-5.0); BILIRUBIN,TOTAL 0.2 mg/dL (0.2-1.0); CALCIUM, SERUM 8.5 mg/dL (8.5-10.1); CREATININE 0.8 mg/dL (0.6-1.3); MAGNESIUM 2.4 mg/dL (1.8-2.4); POTASSIUM 3.1 mmol/L (3.5-5.1); TOTAL PROTEIN, SERUM 5.9 g/dL (6.4-8.2)
[2024-11-24 07:56] LABS: HEMATOCRIT 33 % (39-51); HEMOGLOBIN 11.2 g/dL (13.5-17.5); LYMPHOCYTES # (AUTO) 0.9 K/uL (0.8-4.8); LYMPHOCYTES % (AUTO) 6.8 % (20.0-44.0); MEAN CORPUSCULAR HEMOGLOBIN 33 PG (26.0-33.0); MEAN CORPUSCULAR HGB CONC 34 g/dl (31.0-36.0); MEAN CORPUSCULAR VOLUME 96 fL (80-96); MONOCYTES # (AUTO) 0.3 K/uL (0.1-1.30); MONOCYTES % (AUTO) 2.5 % (2.0-12.0); NEUTROPHILS % (AUTO) 90.7 % (43.0-81.0); PLATELET COUNT (AUTO) 525 K/uL (150-450); RED BLOOD CELL COUNT(AUTO) 3.41 MIL/uL (4.5-6.0); RED CELL DISTRIBUTION WIDTH 12.4 % (11.5-15.0); WHITE BLOOD COUNT (AUTO) 13.2 K/uL (4.3-11.0)
[2024-11-24] MEDS: PANTOPRAZOLE 40 MG TABLET.DR PO SCH (09:00)
[2024-11-24] MEDS: POTASSIUM CHLORIDE 20 MEQ TAB.PRT.SR PO SCH (10:17)
[2024-11-24] MEDS: MENTHOL/CETYLPYRD (CEPACOL) 1 LOZ LOZENGE PO PRN (20:02)
[2024-11-25] VITALS (8 sets, daily range): BP systolic 108–152; BP diastolic 61–65; TEMP 97.3–97.7; O2SAT 93–98
[2024-11-25] MEDS ORDERED: METH4TAB3 PO (14:06)
[2024-11-25] MEDS ORDERED: FLUT1DIS INH (14:06)
[2024-11-25] MEDS ORDERED: ALBU8.5H8 INH (14:06)
== END 2024-11-25 20:29 | DRG 871 ==
LOC: ER 18:34 → TELE1 23:13 → MEDSG1 11-23 11:36
DX: A41.9 Sepsis, unspecified organism (principal); J15.69 Pneumonia due to other Gram-negative bacteria; J96.01 Acute respiratory failure with hypoxia; J44.1 Chronic obstructive pulmonary disease with (acute) exacerbation; J44.0 Chronic obstructive pulmonary disease with (acute) lower respiratory infection; E87.20 Acidosis, unspecified; G93.1 Anoxic brain damage, not elsewhere classified; R65.20 Severe sepsis without septic shock; Z99.3 Dependence on wheelchair; I50.9 Heart failure, unspecified; I11.0 Hypertensive heart disease with heart failure; M24.561 Contracture, right knee; M24.562 Contracture, left knee; Y95 Nosocomial condition; L60.0 Ingrowing nail; L60.2 Onychogryphosis; L60.3 Nail dystrophy; F17.200 Nicotine dependence, unspecified, uncomplicated; E78.5 Hyperlipidemia, unspecified; R91.8 Other nonspecific abnormal finding of lung field; M79.672 Pain in left foot; M79.671 Pain in right foot; Z79.899 Other long term (current) drug therapy
CPT/HCPCS: 36415; 71045-TC; 71250-TC; 80048-TC; 80053-TC; 80076-TC; 81001; 82962-TC; 83605-TC; 83735-TC; 83880; 84100-TC; 84443-TC; 84484-TC; 85025-TC; 85730-TC; 86803; 87040-TC; 87081-TC; 87086-TC; 87340; 87806; 93307-TC; 93970-TC; 94799-TC; 97530-TC; A4223; G0378; J1650; J1815; J2470; J2543; J2919; J7030; J7050; J7060